=== PATIENT | male | born 1985 | race American Indian/Alaskan Native ===

== ENCOUNTER 2017-01-24 21:20 | Emergency (ER) | payer SELFPAY ==
--- NOTE | 2017-01-25 03:05 | Emergency Department Report ---
ED Male HPI - General Chief complaint: Urogenital-Male Stated complaint: OUT BREAK Time Seen by Provider: 01/25/17 03:04 Source: patient Mode of arrival: Ambulatory Limitations: No Limitations - History of Present Illness MD Complaint: other Onset/Timin -: week(s) - Related Data Home Medications Medication Instructions Recorded Confirmed Last Taken Emtricitabin/Tenofovir [TRUVADA 1 tab PO DAILY 05/29/13 06/13/14 06/12/14 22:00 200-300 mg] Ritonavir [Norvir] 100 mg PO DAILY 05/29/13 06/13/14 06/12/14 22:00 Previous Rx's Medication Instructions Recorded Last Taken Type Permethrin 5% [Acticin 5% CREAM] 60 gm TP DAILY #1 tube 06/13/14 Unknown Rx hydrOXYzine HCL [Atarax] 25 mg PO Q6HR PRN #20 tablet 06/13/14 Unknown Rx Acetaminophen/Codeine [Tylenol 1 tab PO Q6H PRN #12 tab 01/25/17 Unknown Rx /Codeine # 3 tab] Cephalexin [Keflex] 500 mg PO BID #14 capsule 01/25/17 Unknown Rx Ibuprofen [Motrin] 800 mg PO Q8HR PRN #25 tablet 01/25/17 Unknown Rx Sulfamethoxazole/Trimethoprim 1 each PO BID #14 tablet 01/25/17 Unknown Rx [Bactrim DS TAB] Triamcinolone 0.1% [Kenalog 0.1% 1 applic TP TID PRN #1 tube 01/25/17 Unknown Rx CREAM] Allergies Allergy/AdvReac Type Severity Reaction Status Date / Time No Known Allergies Allergy Verified 10/09/14 17:40 ED Review of Systems ROS: Stated complaint: OUT BREAK Other details as noted in HPI ED Past Medical Hx - Past Medical History Previous Medical History?: Yes Hx HIV: Yes Additional medical history: HIV / HERPES - Surgical History Past Surgical History?: No - Social History Smoking Status: Current Every Day Smoker - Medications Home Medications: Home Medications Medication Instructions Recorded Confirmed Last Taken Type Emtricitabin/Tenofovir [TRUVADA 1 tab PO DAILY 05/29/13 06/13/14 06/12/14 22:00 History 200-300 mg] Ritonavir [Norvir] 100 mg PO DAILY 05/29/13 06/13/14 06/12/14 22:00 History Permethrin 5% [Acticin 5% CREAM] 60 gm TP DAILY #1 tube 06/13/14 Unknown Rx hydrOXYzine HCL [Atarax] 25 mg PO Q6HR PRN #20 tablet 06/13/14 Unknown Rx Acetaminophen/Codeine [Tylenol 1 tab PO Q6H PRN #12 tab 01/25/17 Unknown Rx /Codeine # 3 tab] Cephalexin [Keflex] 500 mg PO BID #14 capsule 01/25/17 Unknown Rx Ibuprofen [Motrin] 800 mg PO Q8HR PRN #25 tablet 01/25/17 Unknown Rx Sulfamethoxazole/Trimethoprim 1 each PO BID #14 tablet 01/25/17 Unknown Rx [Bactrim DS TAB] Triamcinolone 0.1% [Kenalog 0.1% 1 applic TP TID PRN #1 tube 01/25/17 Unknown Rx CREAM] ED Physical Exam - General Limitations: No Limitations ED Course Vital Signs 01/24/17 21:44 Temperature 98.8 F Pulse Rate 100 H Respiratory 20 Rate Blood Pressure 127/73 O2 Sat by Pulse 97 Oximetry Critical care attestation.: If time is entered above; I have spent that time in minutes in the direct care of this critically ill patient, excluding procedure time. ED Disposition Clinical Impression: Herpes genitalis Disposition: DC- TO HOME OR SELFCARE Condition: Stable Instructions: Genital Herpes Simplex (ED) Prescriptions: Acetaminophen/Codeine [Tylenol /Codeine # 3 tab] 1 tab PO Q6H PRN #12 tab PRN Reason: Pain Cephalexin [Keflex] 500 mg PO BID #14 capsule Ibuprofen [Motrin] 800 mg PO Q8HR PRN #25 tablet PRN Reason: Pain Sulfamethoxazole/Trimethoprim [Bactrim DS TAB] 1 each PO BID #14 tablet Triamcinolone 0.1% [Kenalog 0.1% CREAM] 1 applic TP TID PRN #1 tube PRN Reason: Itching Referrals: [facility] [Provider Group] - 3-5 Days Forms: Work/School Release Form(ED)
[2017-01-25 04:15] VITALS: BP 126/78
== END 2017-01-25 03:45 | disposition home or self-care (01) ==
LOC: ED 21:20
DX: A60.00 Herpesviral infection of urogenital system, unspecified (principal); F17.200 Nicotine dependence, unspecified, uncomplicated
CPT/HCPCS: 99282

== ENCOUNTER 2017-03-06 06:37 | Emergency (ER) | payer MEDICAID ==
[2017-03-06 07:18] VITALS: BP 110/63
--- NOTE | 2017-03-06 09:21 | Emergency Department Report ---
HPI - General Chief Complaint: Sore Throat Time Seen by Provider: 03/06/17 08:34 - HPI HPI: he is a 31-year-old male with prior medical history of HIV who presents complaining of oral thrush 2 days. Patient states he isn't feeling like he has a cold and a bit dehydrated but otherwise fine. Patient states he was recently transferred to another primary care and has an appointment in March 2017. Patient states he is eventually better but was placed on some of the medication prior to his change of primary care physician. Patient states he does not recall and has not been on HIV medication for the past 2 months. Patient denies fever assess chills/nausea/vomiting/cough/urinary problems. ED Past Medical Hx - Past Medical History Hx HIV: Yes Additional medical history: HIV / HERPES - Surgical History Past Surgical History?: No - Social History Smoking Status: Heavy Tobacco Smoker Substance Use Type: Prescribed - Medications Home Medications: Home Medications Medication Instructions Recorded Confirmed Last Taken Type Emtricitabin/Tenofovir [TRUVADA 1 tab PO DAILY 05/29/13 06/13/14 06/12/14 22:00 History 200-300 mg] Ritonavir [Norvir] 100 mg PO DAILY 05/29/13 06/13/14 06/12/14 22:00 History Permethrin 5% [Acticin 5% CREAM] 60 gm TP DAILY #1 tube 06/13/14 Unknown Rx hydrOXYzine HCL [Atarax] 25 mg PO Q6HR PRN #20 tablet 06/13/14 Unknown Rx Acetaminophen/Codeine [Tylenol 1 tab PO Q6H PRN #12 tab 01/25/17 Unknown Rx /Codeine # 3 tab] Acyclovir [Zovirax Cap] 200 mg PO Q4H #30 capsule 01/25/17 Unknown Rx Cephalexin [Keflex] 500 mg PO BID #14 capsule 01/25/17 Unknown Rx Ibuprofen [Motrin] 800 mg PO Q8HR PRN #25 tablet 01/25/17 Unknown Rx Sulfamethoxazole/Trimethoprim 1 each PO BID #14 tablet 01/25/17 Unknown Rx [Bactrim DS TAB] Triamcinolone 0.1% [Kenalog 0.1% 1 applic TP TID PRN #1 tube 01/25/17 Unknown Rx CREAM] Emtricitabine/Tenofovir [Truvada 1 each PO DAILY #30 tablet 03/06/17 Unknown Rx 100 mg-150 mg Tablet] Fluconazole [Diflucan TAB] 100 mg PO QDAY #5 tablet 03/06/17 Unknown Rx Fluconazole [Fluconazole ORAL SOLN] 2 ml PO BID #20 ml 03/06/17 Unknown Rx ED Review of Systems ROS: Stated complaint: THRUSH; DEHYDRATION Other details as noted in HPI Constitutional: denies: chills, fever Eyes: denies: eye pain, eye discharge, vision change ENT: denies: ear pain, throat pain Respiratory: denies: cough, shortness of breath, wheezing Cardiovascular: denies: chest pain, palpitations Endocrine: no symptoms reported Gastrointestinal: denies: abdominal pain, nausea, diarrhea Genitourinary: denies: urgency, dysuria Musculoskeletal: denies: back pain, joint swelling, arthralgia Skin: denies: rash, lesions Neurological: denies: headache, weakness, paresthesias Psychiatric: denies: anxiety, depression Hematological/Lymphatic: denies: easy bleeding, easy bruising Physical Exam - Physical Exam Vital Signs: Vital Signs 03/06/17 03/06/17 07:12 07:18 Temperature 98.8 F Pulse Rate 98 H Respiratory 16 Rate Blood Pressure 110/63 O2 Sat by Pulse 100 Oximetry Physical Exam: GENERAL: Alert and oriented x3, no apparent distress, Normal Gait, atraumatic. HEAD: Head is normocephalic and a-traumatic. EYES: Extra ocular muscles are intact. Pupils are equal, round, and reactive to light and accommodation. EARS: symetrical, atraumatic, non tender, ear canal clear and moderate cerumen, tympanic membrance non inflamed. gross auditory nml bilaterally. NOSE: Nose symetrical, Nontender,Nares appeared normal. MOUTH:Mouth is well hydrated and without lesions. Mild oral plaques consistent with thrush on his tongue, Tonsils nonerythematous or swollen, Uvula midline, Tongue not elevated. Mucous membranes are moist. Posterior pharynx clear, no exudate or lesions. Patent airways. NECK: Supple. Non edematous, No lymphadenopathy or thyromegaly. No C-spine tenderness LUNGS: Symetrical with respiration, No wheezing, no rales or crackles, CTAB. HEART: S1, S2 present, regular rate and rhythm without murmur, no rubs, no gallops. Non tender to palpation ABDOMEN: No organomegaly was noted,Positive bowel sounds, soft, and non- distended. . Nontender to palpation on all Quadrants, NO CVA tenderness. SKIN: Warm and dry, No lesions, No ulceration or induration present. ED Course Vital Signs 03/06/17 03/06/17 07:12 07:18 Temperature 98.8 F Pulse Rate 98 H Respiratory 16 Rate Blood Pressure 110/63 O2 Sat by Pulse 100 Oximetry ED Medical Decision Making - Medical Decision Making 1-year-old male presents with our oral candidiasis ED course: Discussed patient will refill medication postural vital to take medications until appointment with infectious disease care in March. patient is in no acute distress. Patient is wrist and ED, vital signs are normal patient is in no acute distress or respiratory distress. The patient to be compliant taking his HIV medications. Patient states on his understanding and he will. Patient is not ill-appearing. Critical care attestation.: If time is entered above; I have spent that time in minutes in the direct care of this critically ill patient, excluding procedure time. ED Disposition Clinical Impression: Oral thrush Disposition: TO HOME OR SELFCARE Is pt being admited?: No Does the pt Need Aspirin: No Condition: Stable Instructions: Oral Candidiasis (ED) Additional Instructions: Make sure you keep your appointment which her primary care physician or infectious diseases doctor next month If any symptoms worsens or new symptoms arise return to ED Prescriptions: Emtricitabine/Tenofovir [Truvada 100 mg-150 mg Tablet] 1 each PO DAILY #30 tablet Fluconazole [Diflucan TAB] 100 mg PO QDAY #5 tablet Fluconazole [Fluconazole ORAL SOLN] 2 ml PO BID #20 ml Referrals: QI RAMIREZ MD [Primary Care Provider] - 3-5 Days GAVI TEMPLE MD [Referring] - 3-5 Days [facility] [Outside] - 3-5 Days [facility] [Outside] - 3-5 Days Forms: Work/School Release Form(ED) Time of Disposition: 09:30
== END 2017-03-06 09:42 | disposition home or self-care (01) ==
LOC: ED 06:37
DX: B37.0 Candidal stomatitis (principal); F17.200 Nicotine dependence, unspecified, uncomplicated
CPT/HCPCS: 99282

== ENCOUNTER 2018-09-20 09:52 | Emergency (ER) | payer MEDICAID ==
[2018-09-20 10:22] VITALS: BP 140/85
--- NOTE | 2018-09-20 10:22 | Emergency Department Report ---
Stated Complaint: CHEST PAIN/EZCEMA FLARE UP Time Seen by Provider: 09/20/18 10:19 - HPI History of Present Illness: HERE WITH COUGH, CHILL, YELLOW SPUTUM THINKS HE HAS PNEUMONIA 1 WEEK HAS DOUBLED UP ON HIS BACTRIM OFF AZITHROM FOLLOWS WITH ID HERE AT [facility] HX HIV GENITAL HERPES RX AZITHROM BACTRIM ANTIVIRAL POS CIG NO DRUGS NO ETOH MSE COMPLETED MSE screening note: Focused history and physical exam performed. Due to findings the following was ordered: ED Disposition for MSE Condition: Stable
[2018-09-20 10:40] LABS: Basophils # (Auto) 0.1 K/mm3 (0.0-0.1); Eosinophils # (Auto) 0.6 K/mm3 (0.0-0.4); Eosinophils % (Auto) 7.8 % (0.0-4.3); Hemoglobin 15.1 gm/dl (11.8-15.2); Lymphocytes # (Auto) 3.3 K/mm3 (1.2-5.4); Lymphocytes % (Auto) 44.5 % (13.4-35.0); Mean Corpuscular HGB Conc 34 % (32-34); Mean Corpuscular Volume 92 fl (84-94); Monocytes # (Auto) 0.6 K/mm3 (0.0-0.8); Monocytes % (Auto) 7.9 % (0.0-7.3); Platelet Count 232 K/mm3 (140-440); Red Blood Count 4.91 M/mm3 (3.65-5.03); Red Cell Distribution Width 14.4 % (13.2-15.2)
--- NOTE | 2018-09-20 10:52 | XRay Report ---
CHEST 2 VIEWS INDICATION: Dyspnea. COMPARISON: None similar. FINDINGS: PA and lateral chest radiographs demonstrate normal cardiomediastinal silhouette. Clear lungs. Intact bones. CONCLUSION: No acute disease in the chest. Thank you for the opportunity to participate in this patient's care.
[2018-09-20 11:03] LABS: Alanine Aminotransferase 34 units/L (7-56); Albumin 4.4 g/dL (3.9-5); BUN/Creatinine Ratio 12; Blood Urea Nitrogen 18 mg/dL (9-20); Calcium 9.5 mg/dL (8.4-10.2); Hemolysis Index 42
--- NOTE | 2018-09-20 11:20 | Emergency Department Report ---
Minor Respiratory - HPI Chief Complaint: Upper Respiratory Infection Stated Complaint: CHEST PAIN/EZCEMA FLARE UP Time Seen by Provider: 09/20/18 10:19 Duration: 3 Days Severity: moderate Minor Respiratory: Yes Able to Tolerate Fluids, Yes Cough (nonproductive), Yes Shortness of Breath, Yes Fever (subjective, has had chills), No Rhinorrhea, No Sore Throat, No Ear Pain, No Sick Contacts, No Hemoptysis, No Chest Pain Other History: Patient is a 32-year-old black male with a past medical history of HIV. Patient has historically been noncompliant with HIV meds. Patient has run out of his azithromycin that he takes weekly. Patient has been taking Bactrim. ED Review of Systems ROS: Stated complaint: CHEST PAIN/EZCEMA FLARE UP Other details as noted in HPI Comment: All other systems reviewed and negative ED Past Medical Hx - Past Medical History Hx HIV: Yes Additional medical history: HIV/HERPES - Social History Smoking Status: Current Every Day Smoker Substance Use Type: None - Medications Home Medications: Home Medications Medication Instructions Recorded Confirmed Last Taken Type Emtricitabin/Tenofovir [TRUVADA 1 tab PO DAILY 05/29/13 06/13/14 06/12/14 22:00 History 200-300 mg] Ritonavir [Norvir] 100 mg PO DAILY 05/29/13 06/13/14 06/12/14 22:00 History hydrOXYzine HCL [Atarax] 25 mg PO Q6HR PRN #20 tablet 06/13/14 Unknown Rx Acetaminophen/Codeine [Tylenol 1 tab PO Q6H PRN #12 tab 01/25/17 Unknown Rx /Codeine # 3 tab] Acyclovir [Zovirax Cap] 200 mg PO Q4H #30 capsule 01/25/17 Unknown Rx Cephalexin [Keflex] 500 mg PO BID #14 capsule 01/25/17 Unknown Rx Ibuprofen [Motrin] 800 mg PO Q8HR PRN #25 tablet 01/25/17 Unknown Rx Emtricitabine/Tenofovir (Tdf) 1 each PO DAILY #30 tablet 03/06/17 Unknown Rx [Truvada 100 mg-150 mg Tablet] Fluconazole [Diflucan TAB] 100 mg PO QDAY #5 tablet 03/06/17 Unknown Rx Fluconazole [Fluconazole ORAL SOLN] 2 ml PO BID #20 ml 03/06/17 Unknown Rx Permethrin 5% [Acticin 5% CREAM] 60 gm TP DAILY #1 tube 04/25/18 Unknown Rx Sulfamethoxazole/Trimethoprim 1 each PO BID #14 tablet 04/25/18 Unknown Rx [Bactrim DS TAB] Triamcinolone 0.1% [Kenalog 0.1% 1 applic TP TID PRN #454 gram 04/25/18 Unknown Rx CREAM] ALBUTEROL Inhaler(NF) [VENTOLIN 2 puff IH Q4HRT #1 inha 09/20/18 Unknown Rx Inhaler(NF)] Azithromycin [Zithromax TAB] 600 mg PO QWEEK #7 tablet 09/20/18 Unknown Rx Benzonatate [Tessalon Perles] 100 mg PO Q8HR #10 capsule 09/20/18 Unknown Rx Triamcinolone Acetonide 120 ml TP DAILY #1 lotion 09/20/18 Unknown Rx [Triamcinolone 0.1% LOTION] Minor Respiratory Exam - Exam General: Vital signs noted. No distress. Alert and acting appropriately. HEENT: Yes Moist Mucous Membranes, No Pharyngeal Erythema, No Pharyngeal Exudates, No Rhinorrhea, No Conjuctival Injection, No Frontal Tenderness, No Maxillary Tenderness Ear: Neither TM Bulge, Neither TM Erythema, Neither EAC Pain, Neither EAC Discharge Neck: Yes Supple, No Adenopathy Lungs: Yes Good Air Exchange, No Wheezes, No Ronchi, No Stridor, No Cough, No Labored Respirations, No Retractions, No Use of Accessory Muscles, No Other Abnormal Lung Sounds Heart: Yes Regular, No Murmur Abdomen: Yes Normal Bowel Sounds, No Tenderness, No Peritoneal Signs Skin: Yes Rash (dry skin neck and arms), No Edema Neurologic: Alert and oriented, no deficits. Musculoskeletal: Unremarkable. ED Course Vital Signs 09/20/18 10:18 Temperature 97.8 F Pulse Rate 115 H Respiratory 16 Rate Blood Pressure 140/85 O2 Sat by Pulse 100 Oximetry ED Medical Decision Making - Lab Data Result diagrams: 09/20/18 10:28 09/20/18 10:28 - Radiology Data Radiology results: report reviewed (CXR WNL) - Medical Decision Making Patient be started back on his azithromycin weekly. Patient also be started on doxycycline for acute bronchitis in an immunocompromised patient. Patient appears well and is not septic at this time. Laboratory studies are within normal limits. Patient was mildly tachycardic on arrival after walking to the front desk host however tachycardia is resolved. Per my exam patient's heart rate was in the 80s. Critical care attestation.: If time is entered above; I have spent that time in minutes in the direct care of this critically ill patient, excluding procedure time. ED Disposition Clinical Impression: Acute bronchitis, Acute constitutional eczema Disposition: DC-01 TO HOME OR SELFCARE Is pt being admited?: No Does the pt Need Aspirin: No Condition: Stable Instructions: Acute Bronchitis (ED), Eczema (ED) Referrals: LISANDRA STROUD MD [Primary Care Provider] - 3-5 Days Time of Disposition: 11:26
== END 2018-09-20 11:39 | disposition home or self-care (01) ==
LOC: ED 09:52
DX: J20.9 Acute bronchitis, unspecified (principal); L30.9 Dermatitis, unspecified; Z21 Asymptomatic human immunodeficiency virus [HIV] infection status; F17.200 Nicotine dependence, unspecified, uncomplicated
CPT/HCPCS: 36415; 71046; 80053; 85025; 99283

== ENCOUNTER 2018-10-18 09:42 | Outpatient (CLI) | payer MEDICAID ==
[2018-10-18 10:37] LABS: Hematocrit 47.1 % (35.5-45.6); Mean Corpuscular HGB Conc 34 % (32-34); Mean Corpuscular Volume 91 fl (84-94); Platelet Count 223 K/mm3 (140-440); Red Blood Count 5.17 M/mm3 (3.65-5.03); Red Cell Distribution Width 13.5 % (13.2-15.2)
[2018-10-18 10:43] LABS: Bilirubin,Urine NEG (Negative); Blood,Urine NEG (Negative); Color,Urine Yellow (Yellow); Protein,Urine <15 mg/dL mg/dL (Negative); Urobilinogen,Urine < 2.0 mg/dL (<2.0); WBC,Urine < 1.0 /HPF (0.0-6.0)
[2018-10-18 11:10] LABS: Alanine Aminotransferase 31 units/L (7-56); Albumin 4.5 g/dL (3.9-5); BUN/Creatinine Ratio 8; Blood Urea Nitrogen 12 mg/dL (9-20); Calcium 9.6 mg/dL (8.4-10.2); HDL Cholesterol 39 mg/dL (40-59); Hemolysis Index 3; LDL Cholesterol,Direct 110 mg/dL (50-130)
[2018-10-18 16:06] LABS: Hepatitis B Surface Antigen Non-Reactive (Negative); Hepatitis C Virus Antibody Non-Reactive (NonReactive)
[2018-10-23 14:16] LABS: Vitamin D, 25-OH, D2 <4 ng/mL
== END 2018-10-18 09:43 | disposition home or self-care (01) ==
LOC: LAB 09:42
PROVIDERS: ATTEND Internal Medicine
DX: Z00.01 Encounter for general adult medical examination with abnormal findings (principal); Z13.1 Encounter for screening for diabetes mellitus; Z13.220 Encounter for screening for lipoid disorders; B20 Human immunodeficiency virus [HIV] disease
CPT/HCPCS: 36415; 80053; 80061; 80074; 81001; 82306; 82607; 83036; 84443; 85027; 86592

== ENCOUNTER 2018-12-15 21:30 | Emergency (ER) | payer MEDICAID ==
--- NOTE | 2018-12-15 21:40 | Event Note ---
ED Screening Note Date of service: 12/15/18 Time: 21:38 ED Screening Note: 33 y/o person comes in for refill on their eczema cream. This initial assessment/diagnostic orders/clinical plan/treatment(s) is/are subject to change based on patients health status, clinical progression and re-assessment by fellow clinical providers in the ED. Further treatment and workup at subsequent clinical providers discretion. Patient/guardian urged not to elope from the ED as their condition may be serious if not clinically assessed and managed. Initial orders include: <HE PRUETT - Last Filed: 12/15/18 21:38> ED Screening Note: A physician and/or other qualified medical personnel has recommended that the patient receive further examination and/or treatment beyond their Medical Screening Exam. The risks and benefits were explained. The patient was informed of their right to emergency care. Patient left before final disposition of their medical condition. This note has been generated by me, Dr. Razia Parrish III, MD, the Music Library Assistant for the emergency department. I have not seen this patient personally. <RAZIA PARRISH - Last Filed: 12/17/18 16:56>
[2018-12-15 21:46] VITALS: BP 128/85
== END 2018-12-15 21:55 | disposition left against medical advice (07) ==
LOC: ED 21:30
DX: L30.9 Dermatitis, unspecified (principal); Z76.0 Encounter for issue of repeat prescription
CPT/HCPCS: 99281

== ENCOUNTER 2019-03-03 10:21 | Outpatient (CLI) | payer MEDICAID ==
[2019-03-03 11:24] LABS: BUN/Creatinine Ratio 8; Blood Urea Nitrogen 10 mg/dL (9-20); Calcium 9.4 mg/dL (8.4-10.2); Hemolysis Index 11
== END 2019-03-03 10:22 | disposition home or self-care (01) ==
LOC: LAB 10:21
PROVIDERS: ATTEND Internal Medicine
DX: R73.03 Prediabetes (principal); N17.9 Acute kidney failure, unspecified
CPT/HCPCS: 36415; 80048; 83036

== ENCOUNTER 2019-04-02 17:31 | Emergency (ER) | payer MEDICAID ==
--- NOTE | 2019-04-02 17:44 | Emergency Department Report ---
Blank Doc - Documentation Documentation: 33-year-old male that presents with feeling weakness and dizziness. Stated has taken hydrocodoine for pain. This initial assessment/diagnostic orders/clinical plan/treatment(s) is/are subject to change based on patient's health status, clinical progression and re-assessment by fellow clinical providers in the ED. Further treatment and workup at subsequent clinical providers discretion. Patient/guardians urged not to elope from the ED as their condition may be serious if not clinically assessed and managed. Initial orders include: 1- Patient sent to [facility] for further evaluation and treatment 2- labs
[2019-04-02 17:45] VITALS: BP 151/88
[2019-04-02 18:39] LABS: BUN/Creatinine Ratio 5; Blood Urea Nitrogen 8 mg/dL (9-20); Calcium 9.3 mg/dL (8.4-10.2); Hemolysis Index 28
[2019-04-02 19:06] LABS: Basophils # (Auto) 0.1 K/mm3 (0.0-0.1); Eosinophils # (Auto) 0.7 K/mm3 (0.0-0.4); Eosinophils % (Auto) 10.8 % (0.0-4.3); Hematocrit 44.1 % (35.5-45.6); Hemoglobin 14.7 gm/dl (11.8-15.2); Lymphocytes # (Auto) 2.1 K/mm3 (1.2-5.4); Lymphocytes % (Auto) 29.8 % (13.4-35.0); Mean Corpuscular HGB Conc 33 % (32-34); Mean Corpuscular Volume 91 fl (84-94); Monocytes # (Auto) 0.9 K/mm3 (0.0-0.8); Monocytes % (Auto) 12.9 % (0.0-7.3); Platelet Count 207 K/mm3 (140-440); Red Blood Count 4.87 M/mm3 (3.65-5.03); Red Cell Distribution Width 15.1 % (13.2-15.2)
== END 2019-04-02 21:54 | disposition left against medical advice (07) ==
LOC: ED 17:31
DX: R53.1 Weakness (principal); Z53.21 Procedure and treatment not carried out due to patient leaving prior to being seen by health care provider
CPT/HCPCS: 36415; 80048; 85025

== ENCOUNTER 2020-02-28 13:10 | Emergency (ER) | payer MEDICAID ==
[2020-02-28 13:25] VITALS: BP 130/81
[2020-02-28] MEDS ORDERED: CLINDAMYCIN 150 MG/ML VIAL 6 ML IM STA (16:04)
--- NOTE | 2020-02-28 16:17 | Emergency Department Report ---
- General Chief complaint: Skin/Abscess/Foreign Body Stated complaint: PAIN Time Seen by Provider: 02/28/20 14:53 Source: patient Mode of arrival: Ambulatory Limitations: No Limitations - Related Data Home Medications Medication Instructions Recorded Confirmed Last Taken Emtricitabin/Tenofovir [TRUVADA 1 tab PO DAILY 05/29/13 06/13/14 06/12/14 22:00 200-300 mg] Ritonavir [Norvir] 100 mg PO DAILY 05/29/13 06/13/14 06/12/14 22:00 Previous Rx's Medication Instructions Recorded Last Taken Type hydrOXYzine HCL [Atarax] 25 mg PO Q6HR PRN #20 tablet 06/13/14 Unknown Rx Acetaminophen/Codeine [Tylenol 1 tab PO Q6H PRN #12 tab 01/25/17 Unknown Rx /Codeine # 3 tab] Acyclovir [Zovirax Cap] 200 mg PO Q4H #30 capsule 01/25/17 Unknown Rx Cephalexin [Keflex] 500 mg PO BID #14 capsule 01/25/17 Unknown Rx Ibuprofen [Motrin] 800 mg PO Q8HR PRN #25 tablet 01/25/17 Unknown Rx Emtricitabine/Tenofovir (Tdf) 1 each PO DAILY #30 tablet 03/06/17 Unknown Rx [Truvada 100 mg-150 mg Tablet] Fluconazole [Diflucan TAB] 100 mg PO QDAY #5 tablet 03/06/17 Unknown Rx Fluconazole [Fluconazole ORAL SOLN] 2 ml PO BID #20 ml 03/06/17 Unknown Rx Permethrin 5% [Acticin 5% CREAM] 60 gm TP DAILY #1 tube 04/25/18 Unknown Rx Sulfamethoxazole/Trimethoprim 1 each PO BID #14 tablet 04/25/18 Unknown Rx [Bactrim DS TAB] Triamcinolone 0.1% [Kenalog 0.1% 1 applic TP TID PRN #454 gram 04/25/18 Unknown Rx CREAM] ALBUTEROL Inhaler(NF) [VENTOLIN 2 puff IH Q4HRT #1 inha 09/20/18 Unknown Rx Inhaler(NF)] Azithromycin [Zithromax TAB] 600 mg PO QWEEK #7 tablet 09/20/18 Unknown Rx Benzonatate [Tessalon Perles] 100 mg PO Q8HR #10 capsule 09/20/18 Unknown Rx Triamcinolone Acetonide 120 ml TP DAILY #1 lotion 09/20/18 Unknown Rx [Triamcinolone 0.1% LOTION] Chlorhexidine Gluconate [Hibiclens] 10 ml TP BID #240 liquid 02/28/20 Unknown Rx Clindamycin [Clindamycin CAP] 300 mg PO Q8HR #21 capsule 02/28/20 Unknown Rx Mupirocin [Bactroban 2%] 15 applic TP TID #15 gm 02/28/20 Unknown Rx Allergies Allergy/AdvReac Type Severity Reaction Status Date / Time hydrocodone Allergy Unknown Verified 04/02/19 17:46 Abscess Boil HPI - HPI Chief Complaint: Skin/Abscess/Foreign Body Stated Complaint: PAIN Time Seen by Provider: 02/28/20 14:53 Home Medications: Home Medications Medication Instructions Recorded Confirmed Last Taken Emtricitabin/Tenofovir [TRUVADA 1 tab PO DAILY 05/29/13 06/13/14 06/12/14 22:00 200-300 mg] Ritonavir [Norvir] 100 mg PO DAILY 05/29/13 06/13/14 06/12/14 22:00 Previous Rx's Medication Instructions Recorded Last Taken Type hydrOXYzine HCL [Atarax] 25 mg PO Q6HR PRN #20 tablet 06/13/14 Unknown Rx Acetaminophen/Codeine [Tylenol 1 tab PO Q6H PRN #12 tab 01/25/17 Unknown Rx /Codeine # 3 tab] Acyclovir [Zovirax Cap] 200 mg PO Q4H #30 capsule 01/25/17 Unknown Rx Cephalexin [Keflex] 500 mg PO BID #14 capsule 01/25/17 Unknown Rx Ibuprofen [Motrin] 800 mg PO Q8HR PRN #25 tablet 01/25/17 Unknown Rx Emtricitabine/Tenofovir (Tdf) 1 each PO DAILY #30 tablet 03/06/17 Unknown Rx [Truvada 100 mg-150 mg Tablet] Fluconazole [Diflucan TAB] 100 mg PO QDAY #5 tablet 03/06/17 Unknown Rx Fluconazole [Fluconazole ORAL SOLN] 2 ml PO BID #20 ml 03/06/17 Unknown Rx Permethrin 5% [Acticin 5% CREAM] 60 gm TP DAILY #1 tube 04/25/18 Unknown Rx Sulfamethoxazole/Trimethoprim 1 each PO BID #14 tablet 11/08/18 Unknown Rx [Bactrim DS TAB] Triamcinolone 0.1% [Kenalog 0.1% 1 applic TP TID PRN #454 gram 04/25/18 Unknown Rx CREAM] ALBUTEROL Inhaler(NF) [VENTOLIN 2 puff IH Q4HRT #1 inha 09/20/18 Unknown Rx Inhaler(NF)] Azithromycin [Zithromax TAB] 600 mg PO QWEEK #7 tablet 09/20/18 Unknown Rx Benzonatate [Tessalon Perles] 100 mg PO Q8HR #10 capsule 09/20/18 Unknown Rx Triamcinolone Acetonide 120 ml TP DAILY #1 lotion 09/20/18 Unknown Rx [Triamcinolone 0.1% LOTION] Chlorhexidine Gluconate [Hibiclens] 10 ml TP BID #240 liquid 02/28/20 Unknown Rx Clindamycin [Clindamycin CAP] 300 mg PO Q8HR #21 capsule 02/28/20 Unknown Rx Mupirocin [Bactroban 2%] 15 applic TP TID #15 gm 02/28/20 Unknown Rx Allergies/Adverse Reactions: Allergies Allergy/AdvReac Type Severity Reaction Status Date / Time hydrocodone Allergy Unknown Verified 04/02/19 17:46 ED Review of Systems ROS: Stated complaint: PAIN Other details as noted in HPI Comment: All other systems reviewed and negative ED Past Medical Hx - Past Medical History Previous Medical History?: Yes Hx HIV: Yes Additional medical history: HIV/HERPES - Social History Smoking Status: Current Every Day Smoker Substance Use Type: None - Medications Home Medications: Home Medications Medication Instructions Recorded Confirmed Last Taken Type Emtricitabin/Tenofovir [TRUVADA 1 tab PO DAILY 05/29/13 06/13/14 06/12/14 22:00 History 200-300 mg] Ritonavir [Norvir] 100 mg PO DAILY 05/29/13 06/13/14 06/12/14 22:00 History hydrOXYzine HCL [Atarax] 25 mg PO Q6HR PRN #20 tablet 06/13/14 Unknown Rx Acetaminophen/Codeine [Tylenol 1 tab PO Q6H PRN #12 tab 01/25/17 Unknown Rx /Codeine # 3 tab] Acyclovir [Zovirax Cap] 200 mg PO Q4H #30 capsule 01/25/17 Unknown Rx Cephalexin [Keflex] 500 mg PO BID #14 capsule 01/25/17 Unknown Rx Ibuprofen [Motrin] 800 mg PO Q8HR PRN #25 tablet 01/25/17 Unknown Rx Emtricitabine/Tenofovir (Tdf) 1 each PO DAILY #30 tablet 03/06/17 Unknown Rx [Truvada 100 mg-150 mg Tablet] Fluconazole [Diflucan TAB] 100 mg PO QDAY #5 tablet 03/06/17 Unknown Rx Fluconazole [Fluconazole ORAL SOLN] 2 ml PO BID #20 ml 03/06/17 Unknown Rx Permethrin 5% [Acticin 5% CREAM] 60 gm TP DAILY #1 tube 04/25/18 Unknown Rx Sulfamethoxazole/Trimethoprim 1 each PO BID #14 tablet 04/25/18 Unknown Rx [Bactrim DS TAB] Triamcinolone 0.1% [Kenalog 0.1% 1 applic TP TID PRN #454 gram 04/25/18 Unknown Rx CREAM] ALBUTEROL Inhaler(NF) [VENTOLIN 2 puff IH Q4HRT #1 inha 09/20/18 Unknown Rx Inhaler(NF)] Azithromycin [Zithromax TAB] 600 mg PO QWEEK #7 tablet 09/20/18 Unknown Rx Benzonatate [Tessalon Perles] 100 mg PO Q8HR #10 capsule 09/20/18 Unknown Rx Triamcinolone Acetonide 120 ml TP DAILY #1 lotion 09/20/18 Unknown Rx [Triamcinolone 0.1% LOTION] Chlorhexidine Gluconate [Hibiclens] 10 ml TP BID #240 liquid 02/28/20 Unknown Rx Clindamycin [Clindamycin CAP] 300 mg PO Q8HR #21 capsule 02/28/20 Unknown Rx Mupirocin [Bactroban 2%] 15 applic TP TID #15 gm 02/28/20 Unknown Rx ED Physical Exam - General Limitations: No Limitations General appearance: alert, in no apparent distress - Head Head exam: Present: atraumatic, normocephalic - Eye Eye exam: Present: normal appearance, PERRL, EOMI Pupils: Present: normal accommodation - ENT ENT exam: Present: normal exam, normal orophraynx, mucous membranes moist, TM's normal bilaterally - Neck Neck exam: Present: normal inspection, full ROM - Respiratory Respiratory exam: Present: normal lung sounds bilaterally. Absent: respiratory distress, wheezes, rales, chest wall tenderness, accessory muscle use - Cardiovascular Cardiovascular Exam: Present: regular rate, normal rhythm. Absent: systolic murmur, diastolic murmur, rubs, gallop - GI/Abdominal GI/Abdominal exam: Present: soft, normal bowel sounds. Absent: distended, tenderness, hyperactive bowel sounds, hypoactive bowel sounds, organomegaly - Rectal Rectal exam: Present: deferred - Extremities Exam Extremities exam: Present: normal inspection, normal capillary refill - Back Exam Back exam: Present: normal inspection. Absent: CVA tenderness (R), CVA tenderness (L) - Neurological Exam Neurological exam: Present: alert, oriented X3, CN II-XII intact, normal gait - Psychiatric Psychiatric exam: Present: normal affect, normal mood. Absent: anxious, flat affect, manic - Skin Skin exam: Present: warm, dry, intact, normal color. Absent: rash, cyanosis, erythema, urticaria ED Course Vital Signs 02/28/20 13:21 Temperature 98.4 F Pulse Rate 140 H Respiratory 22 Rate Blood Pressure 130/81 O2 Sat by Pulse 99 Oximetry Critical care attestation.: If time is entered above; I have spent that time in minutes in the direct care of this critically ill patient, excluding procedure time. ED Disposition Clinical Impression: Leg wound, right Disposition: DC-01 TO HOME OR SELFCARE Is pt being admited?: No Does the pt Need Aspirin: No Condition: Stable Instructions: Acute Wound Care (ED), Methicillin Resistant Staphylococcus Aureus (ED), Wound Healing and Your Diet (ED) Additional Instructions: Please be sure to have your wound reevaluated in 2 to 3 days Prescriptions: Mupirocin [Bactroban 2%] 15 applic TP TID #15 gm Clindamycin [Clindamycin CAP] 300 mg PO Q8HR #21 capsule Chlorhexidine Gluconate [Hibiclens] 10 ml TP BID #240 liquid Referrals: PRIMARY CAREMD [Primary Care Provider] - 3-5 Days [facility] [Outside] - 3-5 Days LISANDRA STROUD MD [Staff Physician] - 3-5 Days
== END 2020-02-28 17:12 | disposition home or self-care (01) ==
LOC: ED 13:10
DX: S81.801A Unspecified open wound, right lower leg, initial encounter (principal); F17.200 Nicotine dependence, unspecified, uncomplicated; Z88.8 Allergy status to other drugs, medicaments and biological substances; Z79.899 Other long term (current) drug therapy; Z21 Asymptomatic human immunodeficiency virus [HIV] infection status; X58.XXXA Exposure to other specified factors, initial encounter; Y93.89 Activity, other specified; Y92.89 Other specified places as the place of occurrence of the external cause; Y99.8 Other external cause status
CPT/HCPCS: 96372; 99281

== ENCOUNTER 2020-08-14 23:14 | Emergency (ER) | payer MEDICAID ==
[2020-08-15 00:04] VITALS: BP 116/83
--- NOTE | 2020-08-15 00:06 | Emergency Department Report ---
ED General Adult HPI - General Chief complaint: Wound/Laceration Stated complaint: SORE Source: patient Mode of arrival: Ambulatory Limitations: No Limitations - History of Present Illness Initial comments: Patient is a 34-year-old -[place] male with a history of HIV, anxiety and depression who presents to the ED with complaint of acute onset persistent itchy painful erythematous ulcerated rash for the last 4 days. Patient states that he has been using [id number] medications to apply to the area but that in the last 2 days the wound has worsened in severity and pain. Patient denies fever, chills, nausea, vomiting, dizziness, syncope, chest pain, numbness and tingling or weakness of lower extremities bilaterally or cough. MD Complaint: left lower thigh ulcerated rash with pain -: Sudden, days(s) (4) Location: lower extremity (distal anterior left thigh) Radiation: non-radiation Quality: burning, aching, sharp Consistency: constant Improves with: none Worsens with: none Associated Symptoms: denies other symptoms, rash (Ulcerated painful rash on distal left thigh). denies: confusion, chest pain, cough, diaphoresis, headache s, loss of appetite, malaise, nausea/vomiting, seizure, shortness of breath, syncope, weakness - Related Data Home Medications Medication Instructions Recorded Confirmed Last Taken Emtricitabin/Tenofovir [TRUVADA 1 tab PO DAILY 05/29/13 06/13/14 06/12/14 22:00 200-300 mg] Ritonavir [Norvir] 100 mg PO DAILY 05/29/13 06/13/14 06/12/14 22:00 Previous Rx's Medication Instructions Recorded Last Taken Type hydrOXYzine HCL [Atarax] 25 mg PO Q6HR PRN #20 tablet 06/13/14 Unknown Rx Acetaminophen/Codeine [Tylenol 1 tab PO Q6H PRN #12 tab 01/25/17 Unknown Rx /Codeine # 3 tab] Acyclovir [Zovirax Cap] 200 mg PO Q4H #30 capsule 01/25/17 Unknown Rx Ibuprofen [Motrin] 800 mg PO Q8HR PRN #25 tablet 01/25/17 Unknown Rx cephALEXin [Keflex] 500 mg PO BID #14 capsule 01/25/17 Unknown Rx Emtricitabine/Tenofovir (Tdf) 1 each PO DAILY #30 tablet 03/06/17 Unknown Rx [Truvada 100 mg-150 mg Tablet] Fluconazole [Diflucan TAB] 100 mg PO QDAY #5 tablet 03/06/17 Unknown Rx Fluconazole [Fluconazole ORAL SOLN] 2 ml PO BID #20 ml 03/06/17 Unknown Rx Permethrin 5% [Acticin 5% CREAM] 60 gm TP DAILY #1 tube 04/25/18 Unknown Rx Sulfamethoxazole/Trimethoprim 1 each PO BID #14 tablet 04/25/18 Unknown Rx [Bactrim DS TAB] Triamcinolone 0.1% [Kenalog 0.1% 1 applic TP TID PRN #454 gram 04/25/18 Unknown Rx CREAM] ALBUTEROL Inhaler(NF) [VENTOLIN 2 puff IH Q4HRT #1 inha 09/20/18 Unknown Rx Inhaler(NF)] Azithromycin [Zithromax TAB] 600 mg PO QWEEK #7 tablet 09/20/18 Unknown Rx Benzonatate [Tessalon Perles] 100 mg PO Q8HR #10 capsule 09/20/18 Unknown Rx Triamcinolone Acetonide 120 ml TP DAILY #1 lotion 09/20/18 Unknown Rx [Triamcinolone 0.1% LOTION] Chlorhexidine Gluconate [Hibiclens] 10 ml TP BID #240 liquid 02/28/20 Unknown Rx Clindamycin [Clindamycin CAP] 300 mg PO Q8HR #21 capsule 02/28/20 Unknown Rx Ibuprofen [Motrin] 600 mg PO Q8H PRN #30 tablet 08/15/20 Unknown Rx Mupirocin [Bactroban 2% OINT] 15 applic TP TID #15 gm 08/15/20 Unknown Rx Sulfamethoxazole/Trimethoprim 1 each PO Q12H #20 tablet 08/15/20 Unknown Rx [Bactrim DS TAB] Allergies Allergy/AdvReac Type Severity Reaction Status Date / Time hydrocodone Allergy Unknown Verified 04/02/19 17:46 ED Review of Systems ROS: Stated complaint: SORE Other details as noted in HPI Constitutional: denies: chills, fever Eyes: denies: eye pain, eye discharge, vision change ENT: denies: ear pain, throat pain Respiratory: denies: cough, shortness of breath, wheezing Cardiovascular: denies: chest pain, palpitations Endocrine: no symptoms reported Gastrointestinal: denies: abdominal pain, nausea, diarrhea Genitourinary: denies: urgency, dysuria Musculoskeletal: arthralgia (Painful ulcerated rash on distal left thigh). denies: back pain, joint swelling Skin: rash (Ulcerated painful rash on distal left thigh), change in color. denies: lesions Neurological: denies: headache, weakness, paresthesias Psychiatric: denies: anxiety, depression Hematological/Lymphatic: denies: easy bleeding, easy bruising ED Past Medical Hx - Past Medical History Hx HIV: Yes Additional medical history: HIV/HERPES - Social History Smoking Status: Current Every Day Smoker Substance Use Type: None - Medications Home Medications: Home Medications Medication Instructions Recorded Confirmed Last Taken Type Emtricitabin/Tenofovir [TRUVADA 1 tab PO DAILY 05/29/13 06/13/14 06/12/14 22:00 History 200-300 mg] Ritonavir [Norvir] 100 mg PO DAILY 05/29/13 06/13/14 06/12/14 22:00 History hydrOXYzine HCL [Atarax] 25 mg PO Q6HR PRN #20 tablet 06/13/14 Unknown Rx Acetaminophen/Codeine [Tylenol 1 tab PO Q6H PRN #12 tab 01/25/17 Unknown Rx /Codeine # 3 tab] Acyclovir [Zovirax Cap] 200 mg PO Q4H #30 capsule 01/25/17 Unknown Rx Ibuprofen [Motrin] 800 mg PO Q8HR PRN #25 tablet 01/25/17 Unknown Rx cephALEXin [Keflex] 500 mg PO BID #14 capsule 01/25/17 Unknown Rx Emtricitabine/Tenofovir (Tdf) 1 each PO DAILY #30 tablet 03/06/17 Unknown Rx [Truvada 100 mg-150 mg Tablet] Fluconazole [Diflucan TAB] 100 mg PO QDAY #5 tablet 03/06/17 Unknown Rx Fluconazole [Fluconazole ORAL SOLN] 2 ml PO BID #20 ml 03/06/17 Unknown Rx Permethrin 5% [Acticin 5% CREAM] 60 gm TP DAILY #1 tube 04/25/18 Unknown Rx Sulfamethoxazole/Trimethoprim 1 each PO BID #14 tablet 04/25/18 Unknown Rx [Bactrim DS TAB] Triamcinolone 0.1% [Kenalog 0.1% 1 applic TP TID PRN #454 gram 04/25/18 Unknown Rx CREAM] ALBUTEROL Inhaler(NF) [VENTOLIN 2 puff IH Q4HRT #1 inha 09/20/18 Unknown Rx Inhaler(NF)] Azithromycin [Zithromax TAB] 600 mg PO QWEEK #7 tablet 09/20/18 Unknown Rx Benzonatate [Tessalon Perles] 100 mg PO Q8HR #10 capsule 09/20/18 Unknown Rx Triamcinolone Acetonide 120 ml TP DAILY #1 lotion 09/20/18 Unknown Rx [Triamcinolone 0.1% LOTION] Chlorhexidine Gluconate [Hibiclens] 10 ml TP BID #240 liquid 02/28/20 Unknown Rx Clindamycin [Clindamycin CAP] 300 mg PO Q8HR #21 capsule 02/28/20 Unknown Rx Ibuprofen [Motrin] 600 mg PO Q8H PRN #30 tablet 08/15/20 Unknown Rx Mupirocin [Bactroban 2% OINT] 15 applic TP TID #15 gm 08/15/20 Unknown Rx Sulfamethoxazole/Trimethoprim 1 each PO Q12H #20 tablet 08/15/20 Unknown Rx [Bactrim DS TAB] ED Physical Exam - General Limitations: No Limitations General appearance: alert, in no apparent distress - Head Head exam: Present: atraumatic, normocephalic, normal inspection - Eye Eye exam: Present: normal appearance, PERRL, EOMI - ENT ENT exam: Present: normal exam, normal orophraynx, mucous membranes moist, TM's normal bilaterally, normal external ear exam - Neck Neck exam: Present: normal inspection, full ROM - Respiratory Respiratory exam: Present: normal lung sounds bilaterally. Absent: respiratory distress, wheezes, rales, rhonchi, stridor, chest wall tenderness, accessory muscle use - Cardiovascular Cardiovascular Exam: Present: regular rate, normal rhythm, normal heart sounds. Absent: systolic murmur, diastolic murmur, rubs, gallop - GI/Abdominal GI/Abdominal exam: Present: soft, normal bowel sounds. Absent: distended, guarding, rebound, hyperactive bowel sounds, organomegaly - Extremities Exam Extremities exam: Present: normal inspection, full ROM, tenderness (Palpable mild tenderness on anterior distal left thigh due to an ulcerated rash), normal capillary refill - Back Exam Back exam: Present: normal inspection, full ROM. Absent: tenderness, CVA tenderness (R), CVA tenderness (L), muscle spasm, paraspinal tenderness, v ertebral tenderness - Neurological Exam Neurological exam: Present: alert, oriented X3, CN II-XII intact, normal gait, reflexes normal - Psychiatric Psychiatric exam: Present: normal affect, normal mood - Skin Skin exam: Present: warm, dry, intact, rash (Ulcerated tender rash on distal left thigh), erythema ED Course Vital Signs 08/14/20 08/15/20 23:58 01:06 Temperature 98.4 F Pulse Rate 95 H Respiratory 20 20 Rate Blood Pressure 116/83 O2 Sat by Pulse 100 Oximetry ED Medical Decision Making - Medical Decision Making This is a 34-year-old -[place] male with a history of HIV, anxiety and depression who presents to the ED with complaint of acute onset persistent itchy painful erythematous ulcerated rash for the last 4 days. Patient states that he has been using [id number] medications to apply to the area but that in the last 2 days the wound has worsened in severity and pain. In the ED, patient is alert and oriented x3 and is not in any distress but anxious about the rash on his leg. Patient was treated for pain and also given initial oral antibiotics in the ED. Patient was discharged home on medications and advised to follow-up with his primary care physician in 7 to 10 days for reevaluation or return to the ED immediately if symptoms get worse. - Differential Diagnosis Cellulitis; folliculitis; abscess; abrasion; Critical care attestation.: If time is entered above; I have spent that time in minutes in the direct care of this critically ill patient, excluding procedure time. ED Disposition Clinical Impression: Acute folliculitis, Cellulitis of left thigh Disposition: DC-01 TO HOME OR SELFCARE Is pt being admited?: No Does the pt Need Aspirin: No Condition: Stable Instructions: Cellulitis, Adult, [id number] Additional Instructions: Take medication with food, drink plenty of fluids and follow-up with your primary care physician in 7 to 10 days for reevaluation. Return to the ED immediately if symptoms get worse. Prescriptions: Sulfamethoxazole/Trimethoprim [Bactrim DS TAB] 1 each PO Q12H #20 tablet Mupirocin [Bactroban 2% OINT] 15 applic TP TID #15 gm Ibuprofen [Motrin] 600 mg PO Q8H PRN #30 tablet PRN Reason: Pain Referrals: [facility] [Provider Group] - 7-10 days Time of Disposition: 00:06 Print Language: FRENCH
[2020-08-15] MEDS ORDERED: SULFAMETHOXAZOLE/TRIMETHOPRIM 800/160MG DS TAB PO ONE (00:08)
[2020-08-15] MEDS ORDERED: IBUPROFEN 600 MG TAB PO ONE (00:08)
== END 2020-08-15 01:30 | disposition home or self-care (01) ==
LOC: ED 23:14
DX: L03.116 Cellulitis of left lower limb (principal); L73.9 Follicular disorder, unspecified; F17.200 Nicotine dependence, unspecified, uncomplicated; Z21 Asymptomatic human immunodeficiency virus [HIV] infection status; Z79.1 Long term (current) use of non-steroidal anti-inflammatories (NSAID); Z79.899 Other long term (current) drug therapy; Z88.8 Allergy status to other drugs, medicaments and biological substances
CPT/HCPCS: 99282

== ENCOUNTER 2022-01-19 21:12 | Emergency (ER) | payer MEDICAID | END 2022-01-20 08:21 | disposition left against medical advice (07) | LOC: ED 21:12 | DX: M25.539 Pain in unspecified wrist (principal); Z53.21 Procedure and treatment not carried out due to patient leaving prior to being seen by health care provider ==

== ENCOUNTER 2022-01-20 09:38 | Emergency (ER) | payer MEDICAID | END 2022-01-20 11:25 | disposition left against medical advice (07) | LOC: ED 09:38 | DX: M25.539 Pain in unspecified wrist (principal); Z53.21 Procedure and treatment not carried out due to patient leaving prior to being seen by health care provider ==

== ENCOUNTER 2022-01-31 11:23 | Outpatient (CLI) | payer MEDICAID ==
[2022-01-31 11:56] LABS: Basophils # (Auto) 0.1 K/mm3 (0.0-0.1); Basophils % (Auto) 0.5 % (0.0-1.8); Eosinophils # (Auto) 0.1 K/mm3 (0.0-0.4); Eosinophils % (Auto) 0.4 % (0.0-4.3); Lymphocytes % (Auto) 7.6 % (13.4-35.0); Mean Corpuscular HGB Conc 33 % (32-34); Mean Corpuscular Volume 89 fl (84-94); Monocytes # (Auto) 0.8 K/mm3 (0.0-0.8); Monocytes % (Auto) 6.2 % (0.0-7.3); Platelet Count 289 K/mm3 (140-440); Red Blood Count 4.48 M/mm3 (3.65-5.03); Red Cell Distribution Width 14.4 % (13.2-15.2)
[2022-01-31 12:10] LABS: Alanine Aminotransferase 173 units/L (7-56); Albumin 3.2 g/dL (3.9-5); BUN/Creatinine Ratio 11; Blood Urea Nitrogen 16 mg/dL (9-20); Calcium 8.7 mg/dL (8.4-10.2); Hemolysis Index 1
[2022-01-31 12:23] LABS: Mucus,Urine 1+ /HPF
[2022-01-31 12:25] LABS: Bilirubin,Urine Negative (Negative); Color,Urine Yellow (Yellow)
[2022-01-31 12:26] LABS: Blood,Urine Trace (Negative)
== END 2022-01-31 11:24 | disposition home or self-care (01) ==
LOC: LAB 11:23
PROVIDERS: ATTEND Internal Medicine
DX: B20 Human immunodeficiency virus [HIV] disease (principal); R73.03 Prediabetes; N17.9 Acute kidney failure, unspecified
CPT/HCPCS: 36415; 80053; 81001; 85025; 86431; 86592; 86593; 86780; 87591